=== PATIENT | male | born 1995 | race Caucasian/White ===

== ENCOUNTER 2019-02-27 11:48 | Emergency (ER) | payer OTHER ==
[~2019-02-27] VITALS: Ht 182.9 cm; Wt 80.1 kg
[~2019-02-27 11:48] MED LIST: CIPR500T4 PO
[2019-02-27 11:49] VITALS: Ht 182.9 cm; Wt 80.1 kg
[2019-02-27] MEDS ORDERED: CEFTRIAXONE 250 MG INJ IM ONE (14:00)
[2019-02-27] MEDS ORDERED: AZITHROMYCIN 500 MG TAB PO ONE (14:00)
[2019-02-27] MEDS ORDERED: LIDOCAINE 1% (MPF) 5 ML VIAL INFIL ONE (14:00)
[2019-02-27 14:01] VITALS: BP 138/81; PULSE 77; RESP 18
== END 2019-02-27 14:02 | disposition home or self-care (01) ==
LOC: FTE 11:48
DX: M54.6 Pain in thoracic spine (principal); F17.210 Nicotine dependence, cigarettes, uncomplicated; N39.0 Urinary tract infection, site not specified
CPT/HCPCS: 36415; 74176; 80053; 81001; 83690; 85025; 87086; 96372; J0696; Z7502; Z7610